=== PATIENT | male | born 1975 | race Two or more races ===

== ENCOUNTER 2024-09-01 23:11 | Emergency (ER) | payer OTHER ==
[~2024-09-01] VITALS: Ht 177.8 cm; Wt 104.3 kg
[2024-09-01 23:19] VITALS: TEMP 98.7; O2SAT 97
[2024-09-02] MEDS ORDERED: IBUP-2028 MT (00:57)
[2024-09-02] MEDS ORDERED: AMOX-494 MT (00:57)
[2024-09-02 01:28] VITALS: BP 132/95; PULSE 96; RESP 16
[2024-09-02] MEDS: IBUPROFEN 400MG TABLET PO ONE (01:28)
[2024-09-02] MEDS: GENTAMICIN 0.3% OPHTH DROPS 5ML BOTHEYE STA (01:28)
== END 2024-09-02 01:28 | disposition home or self-care (01) ==
LOC: ER 23:11
DX: H10.89 Other conjunctivitis (principal); L04.0 Acute lymphadenitis of face, head and neck; I10 Essential (primary) hypertension; Z98.890 Other specified postprocedural states
CPT/HCPCS: 99283